=== PATIENT | female | born 1990 | race American Indian/Alaskan Native ===

== ENCOUNTER 2020-10-30 08:14 | Emergency (ER) | payer BC ==
--- NOTE | 2020-10-30 09:07 | XRay Report ---
EXAMINATION: Left shoulder radiograph, 2 views, 10/30/2020 CLINICAL INFORMATION: Left shoulder pain. Dislocation. COMPARISON: None. FINDINGS: The humeral head is located inferior and medial to the glenoid. IMPRESSION: 1. Glenohumeral dislocation as described above. Signer Name: Serina Prajapati MD Signed: 10/30/2020 9:03 AM Workstation Name: [id number]
[2020-10-30] MEDS ORDERED: fentaNYL 100 MCG/2 ML INJ IV ONE (09:29)
[2020-10-30] MEDS ORDERED: SODIUM CHLORIDE 0.9% 1000 ML 1,000 ML IV ONE (09:38)
[2020-10-30] MEDS ORDERED: propofoL 200 MG/20 ML VIAL IV ONE (09:39)
--- NOTE | 2020-10-30 09:49 | Emergency Department Report ---
ED General Adult HPI - General Chief complaint: Extremity Injury, Upper Stated complaint: LT SHOULDER OUT OF PLACE Time Seen by Provider: 10/30/20 09:28 Source: patient Mode of arrival: Ambulatory Limitations: Other - History of Present Illness Initial comments: This is a 29-year-old female who apparently dislocated her left shoulder in her sleep. She states the last time this happened to her was in 2019. Her shoulder has dislocated 3 times in her sleep and 9 times total. She has seen an orthopedic physician who recommended corrective surgery but she states he refused. She denies any other injury or complaint. -: During the night Location: left, upper extremity Radiation: non-radiation Quality: aching Consistency: intermittent Improves with: none Worsens with: movement Associated Symptoms: denies other symptoms - Related Data Allergies Allergy/AdvReac Type Severity Reaction Status Date / Time Unable to Assess Allergy Verified 10/30/20 08:19 ED Review of Systems ROS: Stated complaint: LT SHOULDER OUT OF PLACE Other details as noted in HPI Comment: All other systems reviewed and negative ED Past Medical Hx - Past Medical History Previous Medical History?: Yes Additional medical history: SHOULDER DISLOCATION X 9 - Surgical History Past Surgical History?: No - Social History Smoking Status: Never Smoker Substance Use Type: Marijuana ED Physical Exam - General Limitations: Physical Limitation General appearance: alert, in no apparent distress - Head Head exam: Present: atraumatic, normocephalic - Eye Eye exam: Present: normal appearance. Absent: scleral icterus - ENT ENT exam: Present: mucous membranes moist - Neck Neck exam: Present: normal inspection - Respiratory Respiratory exam: Present: normal lung sounds bilaterally. Absent: respiratory distress - Cardiovascular Cardiovascular Exam: Present: regular rate, normal rhythm. Absent: systolic murmur, diastolic murmur, rubs, gallop - GI/Abdominal GI/Abdominal exam: Present: soft, normal bowel sounds. Absent: distended, tenderness - Extremities Exam Extremities exam: Present: other (Apparent inferior dislocation of the left shoulder, empty glenoid. No gross neurovascular compromise) - Back Exam Back exam: Present: normal inspection - Neurological Exam Neurological exam: Present: alert, oriented X3, CN II-XII intact (As tested). Absent: motor sensory deficit - Psychiatric Psychiatric exam: Present: normal affect, normal mood - Skin Skin exam: Present: warm, dry, intact, normal color. Absent: rash ED Course Vital Signs 10/30/20 10/30/20 10/30/20 08:22 08:25 10:03 Temperature 97.4 F L Pulse Rate 85 Respiratory 24 Rate Respiratory 8 L Rate [Intra- Procedure] Respiratory 10 L Rate [Pre- Procedure] Blood Pressure 108/70 Blood Pressure 93/53 [Intra- Procedure] Blood Pressure 97/61 [Post-Procedure ] Blood Pressure 92/59 [Pre-Procedure] O2 Sat by Pulse 100 Oximetry O2 Sat by Pulse 100 Oximetry [ Intra-Procedure ] O2 Sat by Pulse 100 Oximetry [Post -Procedure] O2 Sat by Pulse 100 Oximetry [Pre- Procedure] - Orthopedic Joint Reduction Joint #1 Consent Obtained: verbal consent Time Out Performed: Yes Side: left Joint Reduction Location: shoulder Analgesia: moderate sedation Shoulder Technique Used (if applicable): other (Modified Michelle) Post-Reduction Neuro Exam: intact Post-Reduction Vascular Exam: intact Post Reduction X-Ray Obtained: Yes Post Reduction X-Ray Results: reduced Splint Applied: Yes (Sling) Patient Tolerated Procedure: well Critical care attestation.: If time is entered above; I have spent that time in minutes in the direct care o f this critically ill patient, excluding procedure time. ED Disposition Clinical Impression: Anterior dislocation of left shoulder Qualifiers: Encounter type: initial encounter Qualified Code(s): S43.015A - Anterior dislocation of left humerus, initial encounter Disposition: TO HOME OR SELFCARE Is pt being admited?: No Does the pt Need Aspirin: No Condition: Stable Instructions: Recurrent Shoulder Laxity and Instability, Shoulder Dislocation, [id number] Additional Instructions: Follow-up with orthopedic physician Dr. Hwang or the orthopedist of your choice. I would think that surgery is required to prevent recurrent dislocation. Referrals: KARLA ROSALES MD [Primary Care Provider] - 3-5 Days ANGELA HWANG MD [Staff Physician] - 3-5 Days Time of Disposition: 11:30
--- NOTE | 2020-10-30 10:50 | XRay Report ---
EXAMINATION: Left shoulder radiograph, one view, 10/30/2020 at 10:15 AM CLINICAL INFORMATION: Left shoulder dislocation. Post reduction evaluation. COMPARISON: Left shoulder radiograph, 10/30/2020 at 8:52 AM FINDINGS: There has been interval reduction of the previously seen glenohumeral dislocation. No acute bony fracture is clearly visualized. IMPRESSION: 1. Satisfactory interval reduction of left glenohumeral joint. Signer Name: Serina Prajapati MD Signed: 10/30/2020 10:45 AM Workstation Name: [id number]
[2020-10-30 10:57] VITALS: BP 92/59
== END 2020-10-30 13:20 | disposition home or self-care (01) ==
LOC: ED 08:14
DX: M24.412 Recurrent dislocation, left shoulder (principal); F12.10 Cannabis abuse, uncomplicated
CPT/HCPCS: 23650; 73030; 96361; 96374; 99284; J2704; J3010; J7030